=== PATIENT | male | born 2000 | race African-American/Black ===

== ENCOUNTER 2024-01-25 17:11 | Emergency (ER) | payer OTHER ==
[2024-01-25] MEDS ORDERED: HYDROCODONE/APAP 7.5/325 MG TAB ONE (17:24)
[2024-01-25] MEDS ORDERED: IBUPROFEN 400 MG TAB ONE (17:24)
--- NOTE | 2024-01-25 17:40 | RAD REPORT ---
EXAMINATION: Elbow Left 3 View CLINICAL INDICATION: Male, 23 years old. fall;Pain COMPARISON: No prior exam. FINDINGS: No acute fracture. No malalignment/dislocation. No significant focal degenerative change. Other: n/a IMPRESSION: No acute osseous abnormality.
--- NOTE | 2024-01-25 17:42 | RAD REPORT ---
EXAM:Forearm Left HISTORY: fall;Pain;Deformity COMPARISON: None IMPRESSION: Remote mid ulnar fracture with malunion/nonhealing. Much of the fracture line remains emily dent. There is no clear bridging callus or bone. No acute fracture.
--- NOTE | 2024-01-25 18:04 | ER ---
Nurse's Notes [facility] Name: Remberto Travis Age: 23 yrs Sex: Male : 2000 Arrival Date: 01/25/2024 Time: 17:11 Bed 16 Private MD: Diagnosis: Midshaft Fracture Left Ulna Presentation: 01/24 17:26 Coronavirus screen: At this time, the client does not indicate any symptoms associated [facility] with coronavirus-19. Ebola Screen: No symptoms or risks identified at this time. Initial Sepsis Screen: Does the patient meet any 2 criteria? No. Patient's initial sepsis screen is negative. Does the patient have a suspected source of infection? No. Patient's initial sepsis screen is negative. Risk Assessment: Do you want to hurt yourself or someone else? Patient reports no desire to harm self or others. 17:26 Acuity: TOLU 4 [facility] 17:26 Method Of Arrival: Law Enforcement: [place] [facility] 17:32 Chief complaint: Patient states: "I rolled off the top bunk and hurt my left arm". 9 Onset of symptoms was January 25, 2024. Historical: - Allergies: 17:25 Augmentin; 9 - Home Meds: 17:25 None [Active]; mb9 - PMHx: 17:25 Hypertensive disorder; Anxiety; Schizophrenia; PTSD; 9 - PSHx: 17:25 None; mb9 - Immunization history:: Adult Immunizations up to date. - Infectious Disease History:: Denies. - Social history:: Smoking status: Patient denies any tobacco usage or history of. Screenin:25 [facility] ED Fall Risk Assessment (Adult) History of falling in the last 3 months, 9 including since admission No falls in past 3 months (0 pts) Confusion or Disorientation No (0 pts) Intoxicated or Sedated No (0 pts) Impaired Gait No (0 pts) Mobility Assist Device Used No (0 pt) Altered Elimination No (0 pt) Score/Fall Risk Level 0 - 2 = Low Risk Oriented to surroundings, Maintained a safe environment, Educated pt \\T\\ family on fall prevention, incl call for assistance when getting out of bed. Abuse screen: Denies threats or abuse. Nutritional screening: No deficits noted. Tuberculosis screening: No symptoms or risk factors identified. Assessment: 17:26 Reassessment: Correctional officers at bedside. mb9 17:32 General: Appears in no apparent distress. Behavior is calm, cooperative. Pain: mb9 Complains of pain in left arm Pain does not radiate. Pain currently is 8 out of 10 on a pain scale. Quality of pain is described as throbbing, Pain began suddenly. Neuro: Level of Consciousness is awake, alert, obeys commands, Oriented to person, place, time, situation, Appropriate for age. Cardiovascular: Patient's skin is warm and dry. Respiratory: Airway is patent Respiratory effort is even, unlabored, Respiratory pattern is regular, symmetrical. GI: No signs and/or symptoms were reported involving the gastrointestinal system. : No signs and/or symptoms were reported regarding the genitourinary system. Derm: Skin is pink, warm \\T\\ dry. Musculoskeletal: Range of motion: limited in left shoulder, left elbow and left wrist. Vital Signs: 17:32 BP 132 / 84; Pulse 89; Resp 18; Temp 98; Pulse Ox 100% ; Weight 96.16 kg; Height 6 ft. mb9 5 in. ; Pain 8/10; 18:26 BP 124 / 70; Pulse 84; Resp 16; Pulse Ox 100% on R/A; mb9 17:32 Body Mass Index 25.14 (96.16 kg, 195.58 cm) mb9 17:32 Pain Scale: Adult mb9 ED Course: 17:17 Patient arrived in ED. mb9 17:18 Karson Newsome PA is PHCP. cp 17:18 Roxanna Mo MD is Attending Physician. cp 17:25 Carmen Lopez, JOSE ALFREDO is Primary Nurse. mb9 17:25 Arm band placed on. mb9 17:26 Bed in low position. Call light in reach. Side rails up X 1. Provided Education on: mb9 press call light if needing anything. Client placed on continuous cardiac and pulse oximetry monitoring. NIBP monitoring applied. 17:27 Triage completed. mb9 17:36 XRAY Elbow LEFT 3 view In Process Unspecified. EDMS 17:36 XRAY Forearm LEFT In Process Unspecified. EDMS 18:01 Wayne Maddox MD is Referral Physician. cp 18:23 No provider procedures requiring assistance completed. Patient did not have IV access mb9 during this emergency room visit. Devin wrap to left arm Orthoglass splint: Sugar tong splint applied on left arm. Administered Medications: 17:34 Drug: Ibuprofen PO 800 mg PO once Route: PO; mb9 18:01 Follow up: Response: No adverse reaction mb9 17:34 Drug: Hydrocodone-Acetaminophen PO (7.5 mg-325 mg) 1 tabs PO once; RASS on ADMIN: mb9 Combtv4, Very Agttd3, Agttd2, Rstlss1, AlertClm0, Drwsy-1, Lt Sdtn-2, Mod Sdtn-3, Dp Sdtn-4, UnArsble-5 Route: PO; 18:01 Follow up: Response: No adverse reaction mb9 Medication: 17:26 VIS not applicable for this client. mb9 Outcome: 18:03 Discharge ordered by . renée 18:26 Discharged to Law Enforcement mb9 18:26 Condition: stable 18:26 Discharge instructions given to patient, Instructed on discharge instructions, follow up and referral plans. Demonstrated understanding of instructions, follow-up care, medications, Prescriptions given X 1, 18:34 Patient left the ED. mb9 Signatures: Dispatcher [employer] EDMS Karson Newsome PA PA cp Wilkerson, Mary Beth RN RN mb9 Corrections: (The following items were deleted from the chart) 17:34 17:32 Pulse 89bpm; Resp 18bpm; Pulse Ox 100%; Temp 98F; 96.16 kg; Height 6 ft. 5 in.; mb9 BMI: 25.1; Pain 8/10, Adult; mb9
--- NOTE | 2024-01-25 18:04 | EDPHYS ---
Physician Documentation [facility] Name: Remberto Travis Age: 23 yrs Sex: Male : 2000 Arrival Date: 01/25/2024 Time: 17:11 Bed 16 Private MD: ED Physician Roxanna Mo HPI: 01/24 17:25 This 23 yrs old Black Male presents to ER via Law Enforcement with complaints of Arm cp Pain. 17:25 The patient or guardian complains of injury, pain. cp 17:25 The complaints affect the left elbow and palmar aspect of left forearm. Context: cp resulted from a fall, while in cell today. Associated signs and symptoms: The patient has no apparent associated signs or symptoms. patient reports history of fracture to left forearm. Historical: - Allergies: 17:25 Augmentin; mb9 - Home Meds: 17:25 None [Active]; mb9 - PMHx: 17:25 Hypertensive disorder; Anxiety; Schizophrenia; PTSD; mb9 - PSHx: 17:25 None; mb9 - Immunization history:: Adult Immunizations up to date. - Infectious Disease History:: Denies. - Social history:: Smoking status: Patient denies any tobacco usage or history of. ROS: 17:30 MS/extremity: Positive for pain, of the left elbow and left forearm, cp 17:30 Constitutional: Negative for fever, cp 17:30 Neck: Negative for pain with movement, pain at rest, 17:30 Abdomen/GI: Negative for vomiting, diarrhea, constipation, 17:30 Back: Negative for pain at rest, pain with movement, 17:30 Neuro: Negative for headache, weakness, 17:30 All other systems are negative, Exam: 17:33 Constitutional: The patient appears in no acute distress, alert, awake, non-toxic, well cp developed, well nourished, 17:33 Head/Face: Normocephalic, atraumatic. cp 17:33 Neck: C-spine: vertebral tenderness, is not appreciated, crepitus, is not appreciated, ROM/movement: is normal, is supple, without pain, no range of motions limitations, 17:33 Chest/axilla: Inspection: normal, 17:33 Cardiovascular: Rate: normal, Rhythm: regular, Pulses: Pulses are 2+ in left radial artery. 17:33 Respiratory: the patient does not display signs of respiratory distress, Respirations: normal, no use of accessory muscles, no retractions, labored breathing, is not present, Breath sounds: are clear throughout, no decreased breath sounds, no stridor, no wheezing, 17:33 Abdomen/GI: Inspection: abdomen appears normal, Palpation: abdomen is soft and non-tender, in all quadrants, 17:33 Back: pain, is absent, ROM is normal, 17:33 Musculoskeletal/extremity: Extremities: noted in the left forearm: deformity, pain, tenderness, noted in the left elbow: tenderness, no evidence of decreased ROM, deformity, ROM: limited passive range of motion due to pain, in the left elbow and left forearm, the left hand and left arm Sensation intact. Vital Signs: 17:32 BP 132 / 84; Pulse 89; Resp 18; Temp 98; Pulse Ox 100% ; Weight 96.16 kg; Height 6 ft. mb9 5 in. ; Pain 8/10; 18:26 BP 124 / 70; Pulse 84; Resp 16; Pulse Ox 100% on R/A; mb9 17:32 Body Mass Index 25.14 (96.16 kg, 195.58 cm) mb9 17:32 Pain Scale: Adult mb9 MDM: 17:18 Medical Screening Exam initiated cp 17:30 Differential diagnosis: dislocation, open fracture, closed fracture, contusion. 18:02 Data reviewed: vital signs, nurses notes, radiologic studies, plain films, and as a result, I will discharge patient. 18:03 Counseling: I had a detailed discussion with the patient and/or guardian regarding the cp historical points, exam findings, and any diagnostic results supporting the discharge/admit diagnosis, radiology results, the need for outpatient follow up, a orthopedic surgeon, to return to the emergency department if symptoms worsen or persist or if there are any questions or concerns that arise at home. 18:03 I considered the following discharge prescriptions or medication management in the emergency department Medications were administered in the Emergency Department. See MAR. Response to treatment: the patient's symptoms have mildly improved after treatment, and as a result, I will discharge patient. 01/24 17:19 Order name: XRAY Elbow LEFT 3 view 01/24 17:19 Order name: XRAY Forearm LEFT cp 01/24 18:01 Order name: Sugar Tong Forearm Splint; Complete Time: 18:23 01/24 18:01 Order name: [place]; Complete Time: 18:23 cp Administered Medications: 17:34 Drug: Ibuprofen PO 800 mg PO once Route: PO; mb9 18:01 Follow up: Response: No adverse reaction mb9 17:34 Drug: Hydrocodone-Acetaminophen PO (7.5 mg-325 mg) 1 tabs PO once; RASS on ADMIN: mb9 Combtv4, Very Agttd3, Agttd2, Rstlss1, AlertClm0, Drwsy-1, Lt Sdtn-2, Mod Sdtn-3, Dp Sdtn-4, UnArsble-5 Route: PO; 18:01 Follow up: Response: No adverse reaction 9 Disposition: 01/25 18:01 Chart complete. cp Disposition Summary: 01/25/24 18:03 Discharge Ordered Notes: Location: Home cp Problem: new cp Symptoms: have improved cp Condition: Stable cp Diagnosis - Midshaft Fracture Left Ulna cp Followup: cp - With: Wayne Maddox MD - When: 5 - 6 days - Reason: left ulna midshaft fracture Discharge Instructions: - Discharge Summary Sheet cp - Forearm Fracture, Pediatric cp Forms: - Medication Reconciliation Form cp - Antibiotic Education cp - Prescription Opioid Use cp - Patient Portal Instructions cp - Leadership Thank You Letter cp Prescriptions: - Anaprox DS 550 mg Oral Tablet - take 1 tablet ORAL route every 12 hours As needed; 20 tablet; Refills: 0, cp Product Selection Permitted Signatures: Dispatcher [employer] EDKarson Vides PA PA cp Wilkerson, Mary Beth RN RN mb9 Corrections: (The following items were deleted from the chart) 17:57 17:42 MS/extremity: Positive for pain, of the left elbow and left forearm, cp cp
[2024-01-25 18:40] VITALS: TEMP 98; O2SAT 100
[2024-01-25 18:41] VITALS: BP 124/70
== END 2024-01-25 18:34 | disposition home or self-care (01) ==
LOC: ER 17:11
PROC: 2W3DX1Z Immobilization of Left Lower Arm using Splint (ICD-10-PCS; principal; 2024-01-25)
DX: S52.292A Other fracture of shaft of left ulna, initial encounter for closed fracture (principal); W18.30XA Fall on same level, unspecified, initial encounter
CPT/HCPCS: 99284